=== PATIENT | female | born 1960 | race Caucasian/White ===

== ENCOUNTER 2022-04-11 10:25 | Emergency (ER) | payer OTHER, BC, SELFPAY ==
--- NOTE | ~2022-04-11 | CT_ITS ---
EXAMINATION: CT abdomen pelvis w con DATE: 04/11/2022 12:35 INDICATION: Dysuria. Flank pain. TECHNIQUE: Computed tomography (CT) of the abdomen and pelvis was performed with 100 mL Omnipaque 350 intravenous contrast. Automated exposure control and iterative reconstruction technique were employe d. The dose-length product was 377.25 mGy-cm. COMPARISON: None. FINDINGS: The visualized portions of the lung bases demonstrate a calcified nodule in right middle lo be, consistent with old granulomatous disease. No pleural effusion. The heart size is normal. No moses cardial effusion. The liver, gallbladder, spleen, pancreas, adrenal glands, and kidneys are normal. T here are scattered diverticula in the colon. There is wall thickening of the hepatic flexure of the c olon with adjacent fat stranding. The appendix is normal. There are no dilated loops of bowel. There is no significant stenosis of celiac axis, superior mesenteric artery, or inferior mesenteric artery. There are no pathologically enlarged lymph nodes. There is no free intraperitoneal fluid. There is s evere lower lumbar spondylosis. IMPRESSION: 1. Colitis involving the hepatic flexure. The differential diagnosis includes diverticulitis, infecti ous colitis, and ischemic colitis. Reviewed, dictated and finalized at location A. [employer] IMPRESSION: 1. Colitis involving the hepatic flexure. The differential diagnosis includes d iverticulitis, infectious colitis, and ischemic colitis.
[2022-04-11 10:27] VITALS: BP 163/86; PULSE 70; RESP 16; TEMP 36.6; O2SAT 100
[2022-04-11] MEDS: SODIUM CHLORIDE 0.9% IV 1,000 ML 999 ML IV CONT ×2 (10:45→13:25)
[2022-04-11] MEDS: diphenhydrAMINE HCl INJ 50 MG/ML VIAL 25 MG IV PUSH (10:46)
[2022-04-11] MEDS: METOCLOPRAMIDE HCL INJ 10 MG/2 ML VIAL IV PUSH (10:46)
--- NOTE | 2022-04-11 10:54 | ED.ABDPAIN ---
HPI - Abdominal Pain General Chief Complaint: Abdominal Pain Stated Complaint: ABD PAIN Time Seen by Provider: 04/11/22 10:27 History of Present Illness HPI narrative: 62-year-old female presents to the emergency room from urgent care for evaluation of nausea vomiting and diarrhea since this morning. Patient has been experiencing suprapubic pain with dysuria for 3 days prior to going to the urgent care. Patient states that her suprapubic pain began radiating into her right flank. Denies fever. Related Data Home Medications Medication Instructions Recorded Confirmed estradiol 1 mg tablet mg 04/11/22 04/11/22 meloxicam 7.5 mg tablet mg 04/11/22 Allergies Allergy/AdvReac Type Severity Reaction Status Date / Time Sulfa (Sulfonamide Allergy Rash Verified 04/11/22 10:51 Antibiotics) Review of Systems Review of Systems: CONSTITUTIONAL: Denies fever, chills, or sweats. EYES: Denies visual changes, redness, or discharge. ENT: Denies rhinorrhea, congestion, sore throat, or otalgia. CARDIOVASCULAR: Denies chest pain, palpitations, or edema. RESPIRATORY: Denies cough or dyspnea. GASTROINTESTINAL: Reports suprapubic abdominal pain, nausea, vomiting and diarrhea GENITOURINARY: Reports dysuria SKIN: Denies rash or itching. MUSCULOSKELETAL: Denies back pain, joint pain, or myalgia. NEUROLOGIC: Denies headache, numbness, dizziness, or weakness. PSYCHIATRIC: Denies anxiety or depression. Exam Narrative: GENERAL: Well-appearing, well-nourished, no physical limitations, and in no acute distress. HEAD: Normocephalic, atraumatic. EYES: Conjunctivae normal, PERRLA and EOMI. CHEST: Clear to auscultation. No respiratory distress. No wheezes rales or rhonchi. HEART: Regular rate and rhythm. No murmur heard. Normal peripheral pulses. ABDOMEN: Soft, suprapubic tenderness,, nondistended, normal active bowel sounds. BACK: No CVA tenderness EXTREMITIES: Normal range of motion. No edema. No clubbing or cyanosis SKIN: Warm, dry, no rash. No noted wounds NEURO: No focal deficits. Alert and oriented x3. MAEW. CN's II-XI intact bilaterally, normal gait PSYCH: Cooperative. Normal mood and affect. Course Vital Signs Vital signs: Vital Signs Temperature 36.6 C 04/11/22 10:27 Pulse Rate 70 04/11/22 10:27 Respiratory Rate 16 04/11/22 10:27 Blood Pressure 163/86 H 04/11/22 10:27 Pulse Oximetry 100 04/11/22 10:27 Temperature 36.6 C 04/11/22 10:27 Pulse Rate 69 04/11/22 12:30 Respiratory Rate 16 04/11/22 12:30 Blood Pressure 188/86 H 04/11/22 12:30 Pulse Oximetry 100 04/11/22 12:30 MDM - Abdominal Pain MDM Narrative Medical decision making narrative: 62-year-old female presents to the emergency room with nausea vomiting and diarrhea and suprapubic discomfort. Abdominal exam showed no signs of peritonitis. CT scan showed evidence of colitis with a differential of diverticulitis versus infectious colitis. CBC was slightly elevated at 13.4, no signs of urinary tract infection on her UA. Patient was given 2 L of fluid, Zofran, Benadryl and Reglan for her symptoms. Stated that she would like to go home. Discussed findings with patient and treatment plan. Patient was agreeable. Lab Data 04/11/22 11:00 04/11/22 11:00 Labs: Lab Results 04/11/22 04/11/22 04/11/22 Range/Units 11:00 11:00 11:00 WBC 13.4 H (4.5-10.0) K/mm3 RBC 4.89 (4.2-5.4) M/mm3 Hgb 15.0 (12.0-15.0) g/dL Hct 44.8 (37.0-47.0) % MCV 91.6 (80-100) fl MCH 30.7 (26-34) pg MCHC 33.5 (32-36) g/dl RDW 12.5 (11.5-14.5) % Plt Count 354 (150-375) k/mm3 MPV 9.1 (7.4-10.4) fl Immature Gran % (Auto) 0.4 (0-0.5) % Neut % (Auto) 86.5 H (45.5-73.1) % Lymph % (Auto) 9.2 L (18.3-44.2) % Amelia % (Auto) 3.5 (2.6-8.5) % Eos % (Auto) 0.2 (0-4.4) % Baso % (Auto) 0.2 (0.2-1.2) % Lymph # (Auto) 1.23 (0.9-3.2) K/mm3 Amelia # (Auto) 0.5 (0
[2022-04-11 11:07] LABS: Basophils Percent Auto 0.2 % (0.2-1.2); Eosinophils Percent Auto 0.2 % (0-4.4); Hematocrit 44.8 % (37.0-47.0); Immature Granulocyte Absolute 0.05 K/mm3 (0.00-0.031); Immature Granulocyte Percent A 0.4 % (0-0.5); Lymphocytes Absolute Auto 1.23 K/mm3 (0.9-3.2); Lymphocytes Percent Auto 9.2 % (18.3-44.2); Mean Corpuscular HGB Conc 33.5 g/dl (32-36); Mean Corpuscular Hemoglobin 30.7 pg (26-34); Mean Corpuscular Volume 91.6 fl (80-100); Mean Platelet Volume 9.1 fl (7.4-10.4); Monocytes Absolute Auto 0.5 K/mm3 (0.1-0.6); Monocytes Percent Auto 3.5 % (2.6-8.5); Neutrophils Absolute Auto 11.6 K/mm3 (1.3-6.7); Neutrophils Percent Auto 86.5 % (45.5-73.1); Platelet Count Result 354 k/mm3 (150-375); Red Blood Count 4.89 M/mm3 (4.2-5.4); Red Cell Distribution Width 12.5 % (11.5-14.5); White Blood Count 13.4 K/mm3 (4.5-10.0)
[2022-04-11 11:13] LABS: Appearance Urine Clear (Clear); Bilirubin Urine Negative (Negative); Blood Urine 2+ (Negative); Color Urine Yellow (Yellow); Glucose Urine UA Negative (Negative); Ketones Urine 3+ mg/dL (Negative); Leukocyte Esterase Ur Negative LEU/UL (Negative); Nitrate Urine Negative (Negative); Protein Urine 1+ mg/dL (Negative); Urobilinogen Urine 0.2 mg/dL (<2.0); pH Urine 6.5 (5.0-9.0)
[2022-04-11 11:17] LABS: Add Urine Microscopic? YES; Bacteria Urine Trace /hpf; Mucus Urine Moderate /lpf; RBC Urine 21-50 /hpf (0-2); Squamous Epithelial Cell Urine Many /hpf (Few)
[2022-04-11 11:18] LABS: Alanine Aminotransferase 17 U/L (6-35); Albumin Level 4.5 g/dL (3.5-5.1); Alkaline Phosphatase 84 U/L (38-126); Anion Gap 7 mmol/L (8-16); Aspartate Amino Transferase 24 U/L (14-36); Bilirubin,Total 0.6 mg/dL (0.2-1.3); Blood Urea Nitrogen 10 mg/dL (7-17); Calcium 8.9 mg/dL (8.4-10.2); Carbon Dioxide 28 mmol/L (22-30); Chloride 101 mmol/L (98-107); Estimated Glomerular Filt Rate > 60; Glucose 124 mg/dL (65-110); Potassium 3.4 mmol/L (3.4-5.0); Sodium 136 mmol/L (137-145)
[2022-04-11 12:30] VITALS: BP 188/86; PULSE 69; RESP 16; O2SAT 100
[2022-04-11] MEDS: DICYCLOMINE HCL INJ 20 MG/2 ML VIAL IM (12:41)
[2022-04-11] MEDS: ONDANSETRON INJ 4 MG/2 ML VIAL IV PUSH (14:12)
[2022-04-11 14:16] VITALS: RESP 16
== END 2022-04-11 14:18 | disposition home or self-care (01) ==
PROVIDERS: Emergency Provider Nurse Practitioner Family; PCP Internal Medicine
DX: K52.9 Noninfective gastroenteritis and colitis, unspecified (principal)
CPT/HCPCS: 36415; 74177; 80053; 81001; 85025; 96361; 96372; 96374; 96375; 99284; J0500; J1200; J2405; J2765; J7030; Q9967

== ENCOUNTER 2022-10-27 14:45 | Emergency (ER) | payer OTHER, BC, SELFPAY ==
[2022-10-27 14:46] VITALS: BP 168/93; PULSE 96; RESP 18; TEMP 36.4; O2SAT 100
--- NOTE | 2022-10-27 18:21 | ED.WOUNDLAC ---
HPI - Wound/Laceration General Chief Complaint: Wound/Laceration Stated Complaint: hit in upper lip by branch Time Seen by Provider: 10/27/22 18:18 Source: patient Mode of arrival: ambulatory Limitations: no limitations History of Present Illness HPI narrative: Patient is a 62-year-old female who presents to the ED with report of laceration to her upper lip. Patient reports she was trimming a tall tree branch with an extended jemal when the branch fell straight down, hitting her in her face. She sustained a laceration to her upper outer and inner lip. Patient states she saw stars when it happened, but denied otherwise hitting her head on the ground, denied LOC. Denies any dizziness, lightheadedness. Denies vision changes. Tetanus status up-to-date as of 1 year ago. Related Data Home Medications Medication Instructions Recorded Confirmed estradiol 1 mg tablet mg 04/11/22 04/11/22 meloxicam 7.5 mg tablet mg 04/11/22 Allergies Allergy/AdvReac Type Severity Reaction Status Date / Time Sulfa (Sulfonamide Allergy Rash Verified 10/27/22 18:32 Antibiotics) Review of Systems Review of Systems: CONSTITUTIONAL: Denies fever, chills, or sweats. EYES: Denies visual changes. SKIN: See HPI. MUSCULOSKELETAL: Denies back pain, joint pain, or myalgia. NEUROLOGIC: See HPI. All systems reviewed & are unremarkable except as noted in HPI and below Exam Narrative: GENERAL: Well appearing, well-nourished, non-toxic, in no acute distress. HEAD: Normocephalic, atraumatic. EYES: PERRLA/EOMI, conjunctiva clear. ENT: 1 cm vertical laceration to philtrum of middle upper lip, extending just barely across vermilion border. Bruising and swelling noted to inner upper lip with small L-shaped laceration to inner upper lip body. No through and through laceration. No active bleeding. No trismus, malocclusion. No chipped teeth. NECK: Supple. No adenopathy, no masses. No tenderness throughout cervical spine. RESPIRATORY: Airway patent, respirations nonlabored. Clear to auscultation bilaterally, no rales, rhonchi, wheezing. CARDIOVASCULAR: Regular rate and rhythm without murmurs, rubs, or gallops. Radial pulses 2+ and equal bilaterally. MUSCULOSKELETAL: Moves all extremities. Strength/ROM intact without gross deformities. SKIN: Warm, dry, normal color. No rashes. NEURO: A&O X3. Speech clear. Cranial nerves II-XII grossly intact. Steady gait. No ataxic movements. No focal deficits. PSYCHIATRIC: Appropriate mood and affect. Normal interaction. Course Vital Signs Vital signs: Vital Signs Temperature 97.6 F 10/27/22 14:46 Pulse Rate 96 10/27/22 14:46 Respiratory Rate 18 10/27/22 14:46 Blood Pressure 168/93 H 10/27/22 14:46 Pulse Oximetry 100 10/27/22 14:46 Oxygen Delivery Room Air 10/27/22 14:46 Temperature 97.6 F 10/27/22 14:46 Pulse Rate 96 10/27/22 14:46 Respiratory Rate 18 10/27/22 14:46 Blood Pressure 168/93 H 10/27/22 14:46 Pulse Oximetry 100 10/27/22 14:46 Oxygen Delivery Room Air 10/27/22 14:46 Procedures Laceration Laceration 1: Date: 10/27/22 Time: 19:40 Site: lip (upper) Size (cm): 1 Description: irregular and clean Depth: simple, single layer Local Anesthetic: lidocaine 1% Amount of anesthesia used (mL): 5 Pre-repair: wound explored and irrigated ====== Skin Level ====== Skin layer closed with: nylon and other (chromic gut) Size (cm): 6-0 Number of sutures: 4 (#3 sutures 6-0 ethilon to outer lip, #1 6-0 chromic gut to inner lip) Technique: simple, interrupted ====== Subcutaneous Layer ====== ====== Muscle Layer ====== ====== Tendon Layer ====== MDM - Wound/Laceration MDM Narrative Medical decision making narrative: Patient refused CT brain. No neurologic deficits on exam. Laceration repaired without complications. 1 Chromic Gut absorbable suture placed
--- NOTE | 2022-10-27 19:40 | PC.NURSE ---
Report received from EMILY Goff. Assumed care of patient at this time.
== END 2022-10-27 20:11 | disposition home or self-care (01) ==
PROVIDERS: Emergency Provider Physician Assistant; PCP Internal Medicine
DX: S01.511A Laceration without foreign body of lip, initial encounter (principal); W20.8XXA Other cause of strike by thrown, projected or falling object, initial encounter; Y93.H2 Activity, gardening and landscaping
CPT/HCPCS: 12011; 99283